=== PATIENT | male | born 1985 | race Caucasian/White ===

== ENCOUNTER 2016-07-05 20:37 | Inpatient (IN) ==
[2016-07-05] MEDS ORDERED: Ketorolac 30 MG/ML VIAL IVP ONE (20:50)
[2016-07-05] MEDS ORDERED: Vancomycin 1,500 MG in D5% in Water 250 ML IVPB ONE (20:50)
--- NOTE | 2016-07-05 20:52 | Emergency Department Note ---
Disposition Clinical Impression: Abscess of skin or subcutaneous tissue Disposition: Admitted As Inpatient Condition: Good General Adult HPI - General Chief complaint: ED Skin/Abscess/Foreign Body Stated complaint: skin rash/abscess Time Seen by Provider: 07/05/16 20:46 Source: patient Limitations: no limitations - History of Present Illness Pain Scale: 10 - Related Data Home Medications Medication Instructions Recorded Confirmed Ibuprofen [Motrin] 200 - 800 mg PO Q6HR PRN 07/06/16 07/06/16 Allergies Allergy/AdvReac Type Severity Reaction Status Date / Time Amoxicillin AdvReac Nausea Verified 07/05/16 20:40 Penicillins AdvReac Nausea Verified 07/05/16 20:39 Past Medical History - Past Medical History Medical history: Reports: no medical history Psychiatric history: Reports: no psych history - Social History Smoking Status: Current every day smoker Smokeless Tobacco Status: No Alcohol use: Reports: rarely Drug use: Reports: none Physical Exam - General Limitations: no limitations General appearance: alert, in no apparent distress Course Vital Signs Temperature 98.5 F 07/05/16 20:40 Pulse Rate 122 07/05/16 20:40 Respiratory Rate 18 07/05/16 20:40 Blood Pressure 121/72 07/05/16 20:40 O2 Sat by Pulse Oximetry 95 07/05/16 20:40 Temperature 98.0 F 07/08/16 08:05 Pulse Rate 72 07/08/16 08:05 Respiratory Rate 18 07/08/16 08:05 Blood Pressure 111/69 07/08/16 08:05 O2 Sat by Pulse Oximetry 98 07/08/16 08:05 Oxygen Delivery Oxygen Delivery Room Air Medical Decision Making - Lab Data Result diagrams: 07/07/16 09:11 07/07/16 09:11 Lab Results 07/05/16 07/05/16 07/05/16 Range/Units 21:28 21:28 21:28 WBC 15.0 H (4.3-11.1) K/mcL RBC 4.32 (4.19-5.50) M/mcL Hgb 13.4 (12.9-16.9) g/dL Hct 39.4 (37.5-50.1) % MCV 91.2 (83.0-100.0) fL MCH 31.0 (28.0-33.3) pg MCHC 34.0 (31.6-35.5) g/dL RDW 12.2 (11.5-14.5) % Plt Count 395 (140-400) K/mcL MPV 8.8 L (9.4-12.4) fL Immature Gran % 0.3 (0-4) % Seg Neutrophils % 72.5 % Lymphocytes % 17.0 % Monocytes % 9.1 % Eosinophils % 0.7 % Basophils % 0.4 % Neutrophils # 10.9 H (1.6-8.9) K/mcL Lymphocytes # 2.6 (0.6-4.6) K/mcL Monocytes # 1.4 H (0.0-1.3) K/mcL Eosinophils # 0.1 (0.0-0.6) K/mcL Basophils # 0.1 (0.0-0.2) K/mcL Immature Plt Fraction 1.6 (1.1-6.1) % ESR 28 H (0-10) mm/hr Sodium 137 (136-145) mEq/L Potassium 3.5 (3.5-4.5) mEq/L Chloride 100 (98-109) mEq/L Carbon Dioxide 26 (19-29) mEq/L BUN 17 (8-26) mg/dL Creatinine 1.36 H (0.72-1.25) mg/dL Est GFR ( Amer) > 60 (> 60) Est GFR (Non-Af Amer) > 60 (> 60) BUN/Creatinine Ratio 13 (6-26) Glucose 103 H (70-99) mg/dL Calculated Osmolality 286 (280-300) Calcium 9.7 (8.6-10.8) mg/dL Total Bilirubin 1.2 (0.2-1.2) mg/dL AST 19 (5-34) Units/L ALT 37 (0-55) Units/L Alkaline Phosphatase 67 (38-126) Units/L C-Reactive Protein 80 H (Less than 5) mg/L Serum Total Protein 8.3 (6.0-8.3) g/dL Albumin 4.4 (3.5-5.0) g/dL Globulin 3.9 H (2.4-3.5) g/dL Albumin/Globulin Ratio 1.1 (1.1-2.2) Attestation Statement - Attestation Attestation: I examined this patient and my medical decision-making was reviewed with the CONCRETE SPREADER/PA/Advanced Practice Nurse/Resident Physician. I agree with the documented findings, disposition and treatment plan as described except to the extent set forth below. [id number] time provided Patient presents with a cutaneous eruption with cellulitis and folliculitis to his right knee, left lateral thigh, right areola. He denies IV drug use. No systemic symptoms. He does not appear toxic. He does have noticeable swelling of the right suprapatellar region of his right knee. Septic arthritis possibility although I have a low suspicion for this
[2016-07-05 21:36] LABS: Basophils # 0.1 K/mcL (0.0-0.2); Basophils % 0.4 %; Eosinophils # 0.1 K/mcL (0.0-0.6); Eosinophils % 0.7 %; Hematocrit 39.4 % (37.5-50.1); Hemoglobin 13.4 g/dL (12.9-16.9); Immature Granulocytes % 0.3 % (0-4); Immature Platelets 1.6 % (1.1-6.1); Lymphocytes # 2.6 K/mcL (0.6-4.6); Mean Corpuscular Volume 91.2 fL (83.0-100.0); Mean Platelet Volume 8.8 fL (9.4-12.4); Monocytes # 1.4 K/mcL (0.0-1.3); Monocytes % 9.1 %; Neutrophils # 10.9 K/mcL (1.6-8.9); Platelet Count 395 K/mcL (140-400); Red Blood Count 4.32 M/mcL (4.19-5.50); Red Cell Distribution Width 12.2 % (11.5-14.5); Segmented Neutrophils % 72.5 %
--- NOTE | 2016-07-05 21:42 | Emergency Department Note ---
Disposition Clinical Impression: Abscess of skin or subcutaneous tissue Disposition: Admitted As Inpatient Condition: Good Time of Disposition: 22:21 General Adult HPI - General Chief complaint: ED Skin/Abscess/Foreign Body Stated complaint: skin rash/abscess Time Seen by Provider: 07/05/16 20:46 Source: patient Limitations: no limitations Nursing Notes Reviewed: Yes Vital Signs Reviewed: Yes - History of Present Illness HPI Narrative: No patient presented to the emergency department with multiple areas of draining infections. Complaint of right knee pain with an abscess there. Also right nipple discharge as well as cellulitis. Denies any fevers. His drug use. States this is been going on for about a week and a half. The right knee got worse and started becoming swollen 2 nights ago. Pain Scale: 10 - Related Data Allergies Allergy/AdvReac Type Severity Reaction Status Date / Time Amoxicillin AdvReac Nausea Verified 07/05/16 20:40 Penicillins AdvReac Nausea Verified 07/05/16 20:39 All systems ED: reviewed and negative except as stated. Constitutional: Denies: fever ENT ED: Denies: throat pain, congestion Cardiovascular: Denies: chest pain, palpitations, syncope Respiratory: Denies: cough, dyspnea, wheezes Gastrointestinal: Denies: abdominal pain, nausea, vomiting, diarrhea, hematemesis, melena, hematochezia Genitourinary: Denies: urgency, dysuria, frequency, hematuria Musculoskeletal: Reports: joint swelling (Right knee). Denies: back pain, neck pain Integumentary: Reports: lesions (Multiple areas of erythema and draining purulent discharge to right knee right nipple left thigh multiple areas on arms. ) Neurological: Denies: headache, weakness Past Medical History - Past Medical History Medical history: Reports: no medical history Psychiatric history: Reports: no psych history - Social History Smoking Status: Current every day smoker Smokeless Tobacco Status: No Alcohol use: Reports: rarely Drug use: Reports: none Physical Exam - General Limitations: no limitations General appearance: alert, in no apparent distress - Head Head exam: atraumatic, normocephalic, normal inspection - Eye Eye exam: Present: normal appearance, PERRL, EOMI. Absent: scleral icterus - ENT ENT exam: normal exam, normal oropharynx, mucous membranes moist - Neck Neck exam: Present: normal inspection, full ROM - Chest Chest inspection: Present: normal inspection, symmetric chest wall rise, tenderness (Right nipple. He has a area of erythema that is approximately 4 cm in diameter around his right nipple. There is drainage from the distal aspect of his right nipple. This appear cellulitic in nature. Cannot appreciate any abscesses under this.) - Respiratory Respiratory exam: Present: normal lung sounds bilaterally. Absent: respiratory distress - Cardiovascular Cardiovascular exam: Present: regular rate, normal rhythm, normal heart sounds - Abdominal Exam Abdominal exam: Present: soft, Non-Tender, normal bowel sounds, other (I do not appreciate any areas of erythema or cellulitis patient's abdomen.). Absent: tenderness, distention, guarding - Extremities Exam Extremities exam: Present: full ROM, tenderness (Right knee. Swelling and erythema to the prepatellar area of the right knee. It does not appear to be intra-articular. There is no tenderness on the joint line. Knee is warm. There is an area that is draining a purulent discharge to the anterior aspect of right patella.), normal capillary refill, joint swelling (Right knee), other (Area is a 2 cm in diameter of erythema with purulent drainage from the center. This is to the lateral aspect of anterior left thigh.). Absent: pedal edema - Back Exam Back exam: Present: normal inspection, full ROM, other (I do not appreciate any areas of abscess patient's back.). Absent: tenderness - Neurological Exam Neurological exam: Present: alert, oriented X3 - Psychiatric Psychiatric exam: Present: normal affect, normal mood - Skin Skin exam: Present: warm, dry, normal color Course Course Narrative: Male patient presenting to the emergency department with several areas of erythema and purulent drainage. Patient denies drug use. He denies skin popping. He reports a 1-1/2 week history of right knee pain that has had drainage. He states over the past 2 days the knee has been inflamed and the area has gotten larger. He did have a large amount of drainage last night. He states he also has an area that is abscess to the left lateral thigh. This is approximately 2 cm in diameter with purulent discharge and erythema around this as well. Also has a proximally 3 cm in diameter area around his right nipple that is erythematous and cellulitic in nature. He has multiple areas of abscess to his arms. None of these appeared to be amendable to drainage. Patient's right knee is erythematous swollen and warm. Does not appear to be intra-articular. There is no pain on the joint line. He has full range of motion of this extremity. We will begin patient on IV vancomycin. He does have an elevated white blood cell count. He is not febrile while he is here. He is otherwise well-appearing. We will get a CT with contrast the patient's right knee. His pain is being controlled with Toradol. We will admit patient to the hospital for IV antibiotic therapy. - Consultations Consultation #1: Dr. Pagan excepted patient's stable condition. He was made aware that we are scanning patient's knee but did not have the results back yet. Time: 21:57 Vital Signs Temperature 98.5 F 07/05/16 20:40 Pulse Rate 122 07/05/16 20:40 Respiratory Rate 18 07/05/16 20:40 Blood Pressure 121/72 07/05/16 20:40 O2 Sat by Pulse Oximetry 95 07/05/16 20:40 Temperature 98.5 F 07/05/16 20:40 Pulse Rate 122 07/05/16 20:40 Respiratory Rate 18 07/05/16 20:40 Blood Pressure 121/72 07/05/16 20:40 O2 Sat by Pulse Oximetry 95 07/05/16 20:40 Oxygen Delivery Oxygen Delivery Room Air Medical Decision Making - Medical Records Medical records reviewed: Yes I reviewed the patient's medical records. - Lab Data Lab results reviewed: Yes I reviewed the patient's lab results. Result diagrams: 07/05/16 21:28 07/05/16 21:28 Lab Results 07/05/16 07/05/16 07/05/16 Range/Units 21:28 21:28 21:28 WBC 15.0 H (4.3-11.1) K/mcL RBC 4.32 (4.19-5.50) M/mcL Hgb 13.4 (12.9-16.9) g/dL Hct 39.4 (37.5-50.1) % MCV 91.2 (83.0-100.0) fL MCH 31.0 (28.0-33.3) pg MCHC 34.0 (31.6-35.5) g/dL RDW 12.2 (11.5-14.5) % Plt Count 395 (140-400) K/mcL MPV 8.8 L (9.4-12.4) fL Immature Gran % 0.3 (0-4) % Seg Neutrophils % 72.5 % Lymphocytes % 17.0 % Monocytes % 9.1 % Eosinophils % 0.7 % Basophils % 0.4 % Neutrophils # 10.9 H (1.6-8.9) K/mcL Lymphocytes # 2.6 (0.6-4.6) K/mcL Monocytes # 1.4 H (0.0-1.3) K/mcL Eosinophils # 0.1 (0.0-0.6) K/mcL Basophils # 0.1 (0.0-0.2) K/mcL Immature Plt Fraction 1.6 (1.1-6.1) % ESR 28 H (0-10) mm/hr Sodium 137 (136-145) mEq/L Potassium 3.5 (3.5-4.5) mEq/L Chloride 100 (98-109) mEq/L Carbon Dioxide 26 (19-29) mEq/L BUN 17 (8-26) mg/dL Creatinine 1.36 H (0.72-1.25) mg/dL Est GFR ( Amer) > 60 (> 60) Est GFR (Non-Af Amer) > 60 (> 60) BUN/Creatinine Ratio 13 (6-26) Glucose 103 H (70-99) mg/dL Calculated Osmolality 286 (280-300) Calcium 9.7 (8.6-10.8) mg/dL Total Bilirubin 1.2 (0.2-1.2) mg/dL AST 19 (5-34) Units/L ALT 37 (0-55) Units/L Alkaline Phosphatase 67 (38-126) Units/L C-Reactive Protein 80 H (Less than 5) mg/L Serum Total Protein 8.3 (6.0-8.3) g/dL Albumin 4.4 (3.5-5.0) g/dL Globulin 3.9 H (2.4-3.5) g/dL Albumin/Globulin Ratio 1.1 (1.1-2.2)
[2016-07-05 21:53] LABS: Alanine Aminotransferase 37 Units/L (0-55); Albumin 4.4 g/dL (3.5-5.0); Albumin/Globulin Ratio 1.1 (1.1-2.2); Alkaline Phosphatase 67 Units/L (38-126); Aspartate Amino Transferase 19 Units/L (5-34); BUN/Creatinine Ratio 13 (6-26); Bilirubin,Total 1.2 mg/dL (0.2-1.2); Blood Urea Nitrogen 17 mg/dL (8-26); C-Reactive Protein 80 mg/L (Less than 5); Calcium 9.7 mg/dL (8.6-10.8); Carbon Dioxide 26 mEq/L (19-29); Chloride 100 mEq/L (98-109); Globulin 3.9 g/dL (2.4-3.5); Glucose 103 mg/dL (70-99); Osmolality,Calculated 286 (280-300); Potassium 3.5 mEq/L (3.5-4.5); Sodium 137 mEq/L (136-145); Total Protein 8.3 g/dL (6.0-8.3); eGFR For African Americans > 60 (> 60); eGFR For Non-African Americans > 60 (> 60)
[2016-07-06] MEDS ORDERED: Naloxone 0.4 MG/ML INJ IVP PRN (00:28)
--- NOTE | 2016-07-06 00:41 | Internal Med History&Physical ---
<Wes Ordoñez - Last Filed: 07/06/16 02:01> Date of Encounter: 07/06/16 Time of Encounter: 00:39 Assessment and Plan (1) Cellulitis Current visit: Yes Status: Acute With multiple sites. Concern for hematogenous spread of Staphylococcus organism. Blood cultures have been drawn, will obtain wound culture. IV antibiotics with vancomycin initiated. Patient does have a history of IV drug use but adamantly denies any drug use in the last years however there is a concern for hematogenous spread related to IV drug use. We will obtain urine drug screen, we will give no opiate pain medications, at least until urine drug screen is collected. Qualifiers: Site of cellulitis: unspecified site Qualified Code(s): L03.90 - Cellulitis , unspecified (2) Sepsis Current visit: Yes Status: Acute Patient meets sepsis criteria with leukocytosis, tachycardia with cellulitis as presumed source of infection. Blood cultures have been drawn, antibiotics have been initiated, initial lactate is 0.9. We will fluid hydrate and continue antibiotics Qualifiers: Sepsis type: sepsis due to unspecified organism Qualified Code(s): A41.9 - Sepsis, unspecified organism (3) DVT prophylaxis Current visit: Yes Status: Acute Heparin 5000 units subcutaneous twice a day Internal Medicine - H&P: HPI Chief complaint: Skin infection Admitted From: Emergency Dept Plans for Post Hospital Care: Home History of present illness: Mr. Cunningham is a 31 year old male who presents with multiple skin lesions. Patient states that approximately one week ago he developed small, flat, red lesions on his lower extremities. He states that some of these have progressed to larger areas of swelling and erythema and some of them have broken open and drained. He states he has never had anything like this before. He reports subjective fevers but has not measured them. Patient denies any known bug bites or tick bites, trauma or breaks in the skin, recent IV drug use. Patient states he did use IV drugs approximately 3 years ago but has not used since then. Denies chills, chest pain, shortness of breath, abdominal pain, nausea, vomiting, diarrhea, dysuria. Past Med Surg Social Fam HX - Past Medical History Medical history: no medical history Psychiatric history: no psych history - Past Surgical History Surgical History: non-contributory - Social History Smoking Status: Current every day smoker Packs per day: 3 or 4 cigarettes/day Smokeless Tobacco Status: No Alcohol use: occasionally Drug use: none - Family History Father Hx Family Cardiac Disorders: Yes (HTN, HLD) Hx Family Respiratory Disorders: Yes (COPD) Hx Family Cancer: No Hx Family GI Disorders: Yes (GERD) Hx Family Genitourinary Disorders: No Hx Family Endocrine Disorder: Yes (DM) Hx Family Musculoskeletal Disorders: No Hx Family Neuromuscular Disorders: No Hx Family Neurologic Disorders: No Hx Family HEENT Disorders: No Hx Family Autoimmune Disorders: No Hx Family Reproductive Disorders: No Hx Family Psychosocial Disorders: No Hx Family Medical Disorders: No Mother Hx Family Cardiac Disorders: Yes (HTN) Hx Family Respiratory Disorders: No Hx Family Cancer: Yes (Ovarian) Hx Family GI Disorders: Yes (GERD) Hx Family Genitourinary Disorders: No Hx Family Endocrine Disorder: Yes (DM) Hx Family Musculoskeletal Disorders: No Hx Family Neuromuscular Disorders: No Hx Family Neurologic Disorders: No Hx Family HEENT Disorders: No Hx Family Autoimmune Disorders: No Hx Family Reproductive Disorders: No Hx Family Psychosocial Disorders: No Hx Family Medical Disorders: No Internal Medicine - H&P: Meds Allergies Amoxicillin Adverse Reaction (Verified 07/05/16 20:40) Nausea Penicillins Adverse Reaction (Verified 07/05/16 20:39) Nausea All Systems PM: A 10-system review of systems was performed and is negative for pertinent findings except as documented above in the HPI. - Constitutional Constitutional: fever(s), no chills - EENT Eyes: no change in vision Nose, mouth and throat: no sinus pain, no sinus pressure, no sore throat - Breasts Breasts: pain, nipple discharge, skin changes - Cardiovascular Cardiovascular ROS IM: no chest pain, no dyspnea, no edema, no palpitations, no syncope - Respiratory Respiratory: no cough, no dyspnea - Gastrointestinal Gastrointestinal: no abdominal pain, no diarrhea, no nausea, no vomiting - Genitourinary Genitourinary ROS male: no dysuria, no hematuria - Musculoskeletal Musculoskeletal ROS IM: no arthralgias, no numbness, no tingling - Integumentary Integumentary IM: erythema, new lesions, rash, skin ulcer, sores - Neurological Neurological ROS: no dizziness, no paresthesias - Psychiatric Psychiatric: no anxiety, no depression - Hematologic/Lymphatic Hematologic/Lymphatic: no easy bleeding, no easy bruising, no lymphadenopathy - Allergic/Immunologic Allergic/Immunologic: no throat swelling, no itchy eyes - Constitutional Vitals: Temp Pulse Resp BP Pulse Ox 97.9 F 100 16 116/65 95 07/05/16 23:11 07/05/16 23:11 07/05/16 23:11 07/05/16 23:11 07/05/16 23:11 General appearance: Present: A&O X 3, no acute distress - Head Head exam: Present: atraumatic, normal inspection, normocephalic - Eye Eye exam: Present: EOMI, PERRL - ENT ENT exam: Present: mucous membranes moist - Neck Neck exam general surgery: Present: full ROM. Absent: tenderness, nuchal rigidity - Respiratory Respiratory exam: Present: CTAB. Absent: rales, rhonchi, wheezes - Cardiovascular Cardiovascular exam: Present: tachycardia. Absent: gallop, irregular rhythm, rubs, systolic murmur - GI/Abdominal GI/Abdominal exam: Present: normal bowel sounds, soft. Absent: distended, tenderness - Extremities Exam Extremities exam: Present: warm. Absent: pedal edema, tenderness - Neurological Exam Neurological exam: Present: alert, CN II-XII intact, oriented X3, no focal deficits - Skin Additional comments: Patient has multiple lesions on his lower extremity ranging from small erythematous macules measuring less than 1 cm in diameter up to approximately 4 lesions located on the right knee right upper lateral thigh and left thigh which show central areas of ulceration with surrounding erythema and warmth. There is a scant amount of pustular drainage. Patient also has erythema surrounding his right nipple with induration but no fluctuation or discernible abscess or drainage. He also has several small erythematous macules on his upper extremity is bilaterally. Internal Med - H&P Results - Labs CBC & Chem 7: 07/05/16 21:28 07/05/16 21:28 <Osmel Nguyen - Last Filed: 07/06/16 03:18> Date of Encounter: 07/06/16 Internal Medicine - H&P: HPI History of present illness: Mr. Cunningham is a 31 year old male All Systems PM: A 10-system review of systems was performed and is negative for pertinent findings except as documented above in the HPI. - Constitutional Vitals: Temp Pulse Resp BP Pulse Ox 97.9 F 100 16 116/65 95 07/05/16 23:11 07/05/16 23:11 07/05/16 23:11 07/05/16 23:11 07/05/16 23:11 Internal Med - H&P Results - Labs CBC & Chem 7: 07/05/16 21:28 07/05/16 21:28 - Attending Attestation I examined this patient and my medical decision-making was reviewed with the Resident Physician, Dr Ordoñez. I agree with the documented findings, disposition and treatment plan as described except to the extent set forth below. Patient is in no acute distress. Heart exam reveals regular S1 and S2 with no murmurs. Lungs are clear bilaterally. Skin has multiple areas of erythema with central necrosis the most prominent is on the right knee. I have I and D- ed this area and obtained a wound culture. Plan: We will give 1 L bolus. Continue vancomycin with dosing by levels. IV Toradol for pain. Follow-up blood cultures and wound culture. He is at high risk for morbidity mortality and complications due to IV vancomycin which requires frequent blood level monitoring for toxicity and therapeutic effect.
[2016-07-06] MEDS ORDERED: Vancomycin 1,000 MG in D5% in Water 250 ML IVPB SCH (01:00)
[2016-07-06] MEDS: Ketorolac 30 MG/ML VIAL IVP PRN ×4 (01:35→21:05)
[2016-07-06] MEDS ORDERED: 0.9 % Sodium Chloride 1,000 ML IVC ONE (03:11)
[2016-07-06 04:27] LABS: BUN/Creatinine Ratio 16 (6-26); Basophils # 0.1 K/mcL (0.0-0.2); Basophils % 0.4 %; Blood Urea Nitrogen 19 mg/dL (8-26); Calcium 9.2 mg/dL (8.6-10.8); Carbon Dioxide 25 mEq/L (19-29); Chloride 101 mEq/L (98-109); Eosinophils # 0.2 K/mcL (0.0-0.6); Eosinophils % 1.8 %; Glucose 104 mg/dL (70-99); Hematocrit 37.1 % (37.5-50.1); Hemoglobin 12.3 g/dL (12.9-16.9); Immature Granulocytes % 0.5 % (0-4); Lymphocytes # 2.7 K/mcL (0.6-4.6); Lymphocytes % 19.8 %; Magnesium 2.1 mg/dL (1.6-2.6); Mean Corpuscular HGB Conc 33.2 g/dL (31.6-35.5); Mean Corpuscular Hemoglobin 30.8 pg (28.0-33.3); Mean Corpuscular Volume 92.8 fL (83.0-100.0); Mean Platelet Volume 9.2 fL (9.4-12.4); Monocytes # 1.1 K/mcL (0.0-1.3); Monocytes % 8.1 %; Neutrophils # 9.5 K/mcL (1.6-8.9); Osmolality,Calculated 287 (280-300); Platelet Count 316 K/mcL (140-400); Potassium 3.4 mEq/L (3.5-4.5); Red Cell Distribution Width 12.4 % (11.5-14.5); Segmented Neutrophils % 69.4 %; Sodium 137 mEq/L (136-145); eGFR For African Americans > 60 (> 60); eGFR For Non-African Americans > 60 (> 60)
[2016-07-06] MEDS: Vancomycin 1,250 MG in D5% in Water 250 ML IVPB SCH ×3 (06:17→22:03)
[2016-07-06] MEDS: *HR* Heparin 5,000 UNIT/ML VIAL SQ SCH ×2 (06:17→17:19)
[2016-07-06 09:21] LABS: Amphetamine Screen,Urine Negative ng/mL (Cutoff=1000); Barbiturate Screen,Urine Negative ng/mL (Cutoff=200); Benzodiazepines Screen,Urine Negative ng/mL (Cutoff=200); Cannabinoid Screen,Urine Negative ng/mL (Cutoff = 50); Cocaine Screen,Urine Positive ng/mL (Cutoff= 300); Opiate Screen,Urine Positive ng/mL (Cutoff=300); Phencyclidine Screen,Urine Negative ng/mL (Cutoff=25)
[2016-07-06] MEDS ORDERED: Potassium Chloride Elixir 20 MEQ/15 ML UDC PO ONE (14:35)
[2016-07-07] MEDS: *HR* Heparin 5,000 UNIT/ML VIAL SQ SCH ×2 (05:16→17:00)
[2016-07-07] MEDS: Vancomycin 1,250 MG in D5% in Water 250 ML IVPB SCH ×3 (05:16→22:02)
[2016-07-07 09:11] LABS: BUN/Creatinine Ratio 12 (6-26); Blood Urea Nitrogen 11 mg/dL (8-26); Calcium 8.8 mg/dL (8.6-10.8); Carbon Dioxide 26 mEq/L (19-29); Chloride 106 mEq/L (98-109); Glucose 101 mg/dL (70-99); Magnesium 1.7 mg/dL (1.6-2.6); Osmolality,Calculated 288 (280-300); Sodium 139 mEq/L (136-145); eGFR For African Americans > 60 (> 60); eGFR For Non-African Americans > 60 (> 60)
[2016-07-07 09:33] LABS: Basophils % 0.3 %; Eosinophils # 0.1 K/mcL (0.0-0.6); Hematocrit 32.8 % (37.5-50.1); Hemoglobin 10.9 g/dL (12.9-16.9); Immature Granulocytes % 0.6 % (0-4); Immature Platelets 1.6 % (1.1-6.1); Lymphocytes % 17.5 %; Mean Corpuscular HGB Conc 33.2 g/dL (31.6-35.5); Mean Corpuscular Hemoglobin 31.3 pg (28.0-33.3); Mean Corpuscular Volume 94.3 fL (83.0-100.0); Mean Platelet Volume 9.1 fL (9.4-12.4); Monocytes # 1.1 K/mcL (0.0-1.3); Monocytes % 9.5 %; Neutrophils # 8.2 K/mcL (1.6-8.9); Platelet Count 287 K/mcL (140-400); Red Blood Count 3.48 M/mcL (4.19-5.50); Red Cell Distribution Width 12.4 % (11.5-14.5); Segmented Neutrophils % 71.1 %
--- NOTE | 2016-07-07 12:20 | Internal Med Progress Note ---
Date of Encounter: 07/07/16 Time of Encounter: 12:18 - Assessment and plan (1) Abscess of skin or subcutaneous tissue Current Visit: Yes Status: Acute Assessment and plan: Patient is noted to have multiple small pustules and abscesses over bilateral lower extremities and chest wall, the biggest one over the right anterior knee. Underwent bedside incision and drainage at admission, preliminary wound culture grows gram-positive cocci, possible MRSA. Improving overall clinical condition. Continue IV vancomycin for now and follow up final cultures. Patient also had spontaneous rupture of right chest wall abscess, Gram stain is negative so far as he has already been started on IV antibiotics. Qualifiers: Site of cutaneous abscess: extremity Site of cutaneous abscess of extremity : lower extremity Laterality: right Qualified Code(s): L02.415 - Cutaneous abscess of right lower limb (2) Cellulitis Current Visit: Yes Status: Acute Assessment and plan: Cellulitis with associated abscess on right anterior knee and right chest wall. Questionable IV drug use versus bug bites. Continue IV vancomycin and follow up final wound cultures. Qualifiers: Site of cellulitis: extremity Site of cellulitis of extremity: lower extremity Laterality: right Qualified Code(s): L03.115 - Cellulitis of right lower limb (3) Sepsis Current Visit: Yes Status: Resolved Assessment and plan: Improved leukocytosis and tachycardia. Continue IV antibiotics. Qualifiers: Sepsis type: sepsis due to unspecified organism Qualified Code(s): A41.9 - Sepsis, unspecified organism (4) Positive urine drug screen Current Visit: Yes Status: Acute Assessment and plan: Urine drug screen positive for cocaine and opiates and patient reports using cocaine during the weekend libertarian and using his mother's Vicodin for the pain related to cellulitis. flight attendant inflight services consult. - Subjective Interval history: Reports improvement in pain and size of his skin lesions, specially over right knee and right chest wall; no fever/chills, nausea/emesis, diarrhea, dyspnea; - Constitutional Vitals: Temp Pulse Resp BP Pulse Ox 99.6 F 75 12 106/63 95 07/07/16 10:57 07/07/16 10:57 07/07/16 10:57 07/07/16 10:57 07/07/16 10:57 General appearance: Present: A&O X 3, answers questions appropriately - Respiratory Respiratory exam: Present: CTAB. Absent: accessory muscle use, rales, rhonchi, wheezes - Cardiovascular Cardiovascular exam: Present: RRR, +S1, +S2. Absent: diastolic murmur, gallop, rubs, systolic murmur - Skin Skin exam: Present: dry, intact Additional comments: improved erythema and swelling and induration over right knee; small ulcer with yellowish exudate; right chest wall- erythema, induration beneath the nipple, extending to involve the mammary area, dry lesion, improving tenderness Internal Medicine: Result - Labs CBC & Chem 7: 07/07/16 09:11 07/07/16 09:11 Labs: Short CBC 07/07/16 Range/Units 09:11 WBC 11.5 H (4.3-11.1) K/mcL Hgb 10.9 L (12.9-16.9) g/dL Hct 32.8 L (37.5-50.1) % Plt Count 287 (140-400) K/mcL Neutrophils # 8.2 (1.6-8.9) K/mcL BMP 07/07/16 09:11 Sodium 139 Potassium 4.0 Chloride 106 Carbon Dioxide 26 BUN 11 Creatinine 0.91 Glucose 101 H Calcium 8.8 Consult Discharge Plan - Plan Referrals: NO,PCP [Primary Care Provider] -
[2016-07-07] MEDS: Ketorolac 30 MG/ML VIAL IVP PRN (13:58)
[2016-07-08] MEDS: Ketorolac 30 MG/ML VIAL IVP PRN ×3 (01:02→21:29)
[2016-07-08] MEDS: *HR* Heparin 5,000 UNIT/ML VIAL SQ SCH ×2 (05:50→17:48)
[2016-07-08] MEDS: Vancomycin 1,250 MG in D5% in Water 250 ML IVPB SCH ×2 (05:50→13:48)
--- NOTE | 2016-07-08 14:45 | Internal Med Progress Note ---
Date of Encounter: 07/08/16 Time of Encounter: 14:42 - Assessment and plan (1) Abscess of skin or subcutaneous tissue Current Visit: Yes Status: Acute Assessment and plan: Patient is noted to have multiple small pustules and abscesses over bilateral lower extremities and chest wall, the biggest one over the right anterior knee. Improving lesions and cellulitis overall. Wound cultures from right chest wall and right knee grow MRSA, sensitive to clindamycin. Will change antibiotics to IV clindamycin and continue to monitor. Anticipate discharge in a.m. Qualifiers: Site of cutaneous abscess: extremity Site of cutaneous abscess of extremity : lower extremity Laterality: right Qualified Code(s): L02.415 - Cutaneous abscess of right lower limb (2) Cellulitis Current Visit: Yes Status: Acute Assessment and plan: Cellulitis with associated abscess on right anterior knee and right chest wall. Questionable IV drug use versus bug bites. Change antibiotics to IV clindamycin as above for wound cultures growing MRSA. 2 sets of blood cultures remain negative. Qualifiers: Site of cellulitis: extremity Site of cellulitis of extremity: lower extremity Laterality: right Qualified Code(s): L03.115 - Cellulitis of right lower limb (3) Sepsis Current Visit: Yes Status: Resolved Qualifiers: Sepsis type: sepsis due to unspecified organism Qualified Code(s): A41.9 - Sepsis, unspecified organism (4) Positive urine drug screen Current Visit: Yes Status: Acute - Subjective Interval history: Improving skin lesions; no fever, nausea, emesis, diarrhea; - Constitutional Vitals: Temp Pulse Resp BP Pulse Ox 97.8 F 87 16 109/67 98 07/08/16 11:23 07/08/16 11:23 07/08/16 11:23 07/08/16 11:23 07/08/16 11:23 General appearance: Present: A&O X 3, answers questions appropriately - Respiratory Respiratory exam: Present: CTAB. Absent: accessory muscle use, rales, rhonchi, wheezes - Cardiovascular Cardiovascular exam: Present: RRR, +S1, +S2. Absent: diastolic murmur, gallop, rubs, systolic murmur - Skin Skin exam: Present: dry, intact Additional comments: improving surrounding erythema and induration around lesions over right knee and right chest wall; dry ulcers with underlying induration, nontender Internal Medicine: Result - Labs CBC & Chem 7: 07/07/16 09:11 07/07/16 09:11 Consult Discharge Plan - Plan Referrals: NO,PCP [Primary Care Provider] -
[2016-07-08] MEDS: Clindamycin 600 MG/50 ML 600 MG/50 ML IV.SOLN IVPB SCH (17:04)
[2016-07-09] MEDS: Clindamycin 600 MG/50 ML 600 MG/50 ML IV.SOLN IVPB SCH ×2 (00:09→07:55)
[2016-07-09] MEDS: *HR* Heparin 5,000 UNIT/ML VIAL SQ SCH (06:40)
[2016-07-09] MEDS: Ketorolac 30 MG/ML VIAL IVP PRN ×2 (07:54→14:05)
--- NOTE | 2016-07-09 11:39 | Internal Med Progress Note ---
Date of Encounter: 07/09/16 Time of Encounter: 11:36 - Assessment and plan (1) Abscess of skin or subcutaneous tissue Current Visit: Yes Status: Acute Qualifiers: Site of cutaneous abscess: extremity Site of cutaneous abscess of extremity : lower extremity Laterality: right Qualified Code(s): L02.415 - Cutaneous abscess of right lower limb (2) Cellulitis Current Visit: Yes Status: Acute Qualifiers: Site of cellulitis: extremity Site of cellulitis of extremity: lower extremity Laterality: right Qualified Code(s): L03.115 - Cellulitis of right lower limb (3) Sepsis Current Visit: Yes Status: Resolved Qualifiers: Sepsis type: sepsis due to unspecified organism Qualified Code(s): A41.9 - Sepsis, unspecified organism (4) Positive urine drug screen Current Visit: Yes Status: Acute - Subjective Interval history: Reports that his right chest wall wound got burst open yesterday and he expressed a lot of pus by himself last night; no fever/chills, nausea/vomiting, abdominal pain, diarrhea; - Constitutional Vitals: Temp Pulse Resp BP Pulse Ox 97.5 F L 79 16 111/70 95 07/09/16 07:21 07/09/16 07:21 07/09/16 07:21 07/09/16 07:21 07/09/16 08:06 General appearance: Present: A&O X 3, answers questions appropriately - Respiratory Respiratory exam: Present: CTAB. Absent: accessory muscle use, rales, rhonchi, wheezes - Cardiovascular Cardiovascular exam: Present: RRR, +S1, +S2. Absent: diastolic murmur, gallop, rubs, systolic murmur - Skin Skin exam: Present: dry, intact Additional comments: right chest wall with small deep wound with packing intact; surrounding erythema and induration; nontender; Internal Medicine: Result - Labs CBC & Chem 7: 07/07/16 09:11 07/07/16 09:11 Consult Discharge Plan - Plan Referrals: NO,PCP [Primary Care Provider] -
[2016-07-09 11:52] VITALS: BP 103/63
--- NOTE | 2016-07-09 14:00 | Event Note ---
Date of Encounter: 07/09/16 Time of Encounter: 13:30 Mr. Cunningham is a 31 -year-old male that we were asked to see for right sided chest wall cellulitis and abscess. The patient states that the area opened up spontaneously last evening and he peeled back a piece of skin and drained what he describes as a significant amount of purulent material. The area feels much better today. I have seen and examined him. There is no residual fluctuance noted. The abscess cavity is decompressed. There is minimal redness and induration surrounding this area. The patient's cultures did come back for MRSA. May transition to oral antibiotics per the hospitalist's discretion. Continue with daily wound care as ordered. No further surgical intervention is indicated at this time. Thank you for allowing us to participate in the care of this patient. Please call with any further questions or concerns.
--- NOTE | 2016-07-09 14:28 | Discharge Summary ---
Date of Encounter: 07/09/16 Time of Encounter: 11:30 - Discharge Diagnosis (1) Abscess of skin or subcutaneous tissue Priority: Primary Status: Acute Qualifiers: Site of cutaneous abscess: extremity Site of cutaneous abscess of extremity : lower extremity Laterality: right Qualified Code(s): L02.415 - Cutaneous abscess of right lower limb (2) Cellulitis Priority: Primary Status: Acute Qualifiers: Site of cellulitis: extremity Site of cellulitis of extremity: lower extremity Laterality: right Qualified Code(s): L03.115 - Cellulitis of right lower limb (3) Sepsis Priority: Primary Status: Resolved Qualifiers: Sepsis type: sepsis due to unspecified organism Qualified Code(s): A41.9 - Sepsis, unspecified organism (4) Positive urine drug screen Priority: Secondary Status: Acute - Discharge Medications Prescriptions: Clindamycin [Cleocin] 300 mg PO Q6HR 7 Days Gauze Bandage [Gauze] 1 each TP DAILY 10 Days Ibuprofen 400 mg PO Q6H PRN #30 tablet PRN Reason: Pain Iodoform [Curity Iodoform] 1 each TP DAILY 10 Days Home Medications: Clindamycin [Cleocin] 300 mg PO Q6HR 7 Days 07/09/16 [Rx] Gauze Bandage [Gauze] 1 each TP DAILY 10 Days 07/09/16 [Rx] Ibuprofen 400 mg PO Q6H PRN #30 tablet 07/09/16 [Rx] Iodoform [Curity Iodoform] 1 each TP DAILY 10 Days 07/09/16 [Rx] Allergies/Adverse Reactions: Allergies Amoxicillin Adverse Reaction (Verified 07/05/16 20:40) Nausea Penicillins Adverse Reaction (Verified 07/05/16 20:39) Nausea Date of admission: 07/08/16 14:34 Primary care physician: PCP NO Consults: 07/08/16 20:18 Consult to Wound Care [CONS] Routine Reason for Consult: Multiple abcess wounds, MRSA + active thick, yellow drainage. Call Completed: No 07/09/16 11:38 Consult to Surgery [CONS] Routine Consulting Provider: Bronwyn Br[facility] Reason for Consult: Right chest wall abscess Call Completed: Yes Discharging clinician: Sylvia Julien Anticipated date of discharge: 07/09/16 - Patient Status Disposition: Home, Self-Care Condition: Good Functional capacity at discharge: independent ambulation Overall status at discharge: patient is progressing back to baseline - Discharge Instructions Instructions: Cellulitis (DC), Sepsis (DC) Follow Up With: NO,PCP [Primary Care Provider] - (Please call [phone] (FIND) to find a family physician) Additional Instructions: F/up with wound care/PCP in 1 week - Diet and Activity Activity: resume usual activities as tolerated Diet: advance to your usual diet Hospital course: Mr. Cunningham is a 31 year old male with history of remote IV drug abuse, who was admitted with multiple sites of cellulitis and small abscesses on his extremities. He was noted to have sepsis with leukocytosis, tachycardia and was started on broad-spectrum IV antibiotics-vancomycin and Zosyn. Patient was noted to have erythema, swelling and tenderness, most noticeable on the right anterior knee and right chest wall. Wound on right knee was incised and drained at admission with wound culture growing MRSA. This wound has healed up well during this hospitalization. However, patient had spontaneous rupture of the wound on right chest wall with drainage of significant amount of purulent material and this wound culture has also grown MRSA. Surgery was consulted for possible need for formal incision and drainage of this chest wound, however no further intervention was recommended. business services tech was consulted and outpatient wound care is being arranged for this patient with no primary care provider. His leukocytosis and tachycardia improved and he remains hemodynamically stable. Local wound care was taught to his significant other and he is medically stable for discharge with oral antibiotics and outpatient follow-up. - Time Spent with Patient Total time spent providing and/or coordinating discharge services: Greater than 30 minutes (45 min) - Constitutional Vitals: Temp Pulse Resp BP Pulse Ox 97.7 F 66 16 103/63 94 07/09/16 11:51 07/09/16 11:51 07/09/16 11:51 07/09/16 11:51 07/09/16 11:51 General appearance: Present: A&O X 3, answers questions appropriately - Respiratory Respiratory exam: Present: CTAB. Absent: accessory muscle use, rales, rhonchi, wheezes - Cardiovascular Cardiovascular exam: Present: RRR, +S1, +S2. Absent: diastolic murmur, gallop, rubs, systolic murmur
[2016-07-09] MEDS ORDERED: Aminoglycoside Consult 1 EACH MC ONE (15:55)
== END 2016-07-09 15:56 | disposition home or self-care (01) | DRG 720 ==
LOC: EMEROO 20:37 → 3BNU 20:37 → SUATTDRO 22:00 → 3BNU 23:00
PROVIDERS: ADMIT Internal Medicine Sleep Medicine; ATTEND Internal Medicine

== ENCOUNTER 2019-03-13 23:01 | Observation (INO) ==
[2019-03-13] MEDS ORDERED: 0.9 % Sodium Chloride 1,000 ML IVC ONE (23:26)
[2019-03-13] MEDS ORDERED: Isovue-370 500 ML BOTTLE IVP ONE (23:37)
[2019-03-13] MEDS ORDERED: *HR* LORazepam 2 MG/ML VIAL IVP ONE (23:42)
[2019-03-13 23:46] LABS: Amphetamine Screen,Urine Positive ng/mL (Cutoff=1000); Barbiturate Screen,Urine Negative ng/mL (Cutoff=200); Benzodiazepines Screen,Urine Negative ng/mL (Cutoff=200); Cannabinoid Screen,Urine Negative ng/mL (Cutoff = 50); Cocaine Screen,Urine Negative ng/mL (Cutoff= 300); Opiate Screen,Urine Negative ng/mL (Cutoff=300); Phencyclidine Screen,Urine Negative ng/mL (Cutoff=25)
[2019-03-13 23:47] LABS: Bilirubin,Urine Small (Negative); Blood,Urine Negative (Negative); Color,Urine Dark Yellow (Yellow); Glucose,Urine (UA) Normal (Normal); Ketones,Urine Trace mg/dL (Negative); Leukocyte Esterase,Urine Negative (Negative); Nitrite,Urine Negative (Negative); PH,Urine 5.5 pH Units (5.0-8.0); Protein,Urine Trace mg/dL (Neg-Trace); Specific Gravity,Urine > 1.030 (1.010-1.025); Urobilinogen,Urine Normal (Normal)
[2019-03-13 23:49] LABS: Clarity,Urine Slightly Hazy (Clear)
[2019-03-14 00:02] LABS: VBG HCO3 27 mEq/L (21-27); VBG PCO2 47 mmHg (41-51); VBG PH 7.37 pH Units (7.32-7.42); VBG PO2 41 mmHg (25-50)
[2019-03-14 00:19] LABS: Basophils # 0.1 K/mcL (0.0-0.2); Basophils % 0.4 %; Eosinophils # 0.1 K/mcL (0.0-0.6); Eosinophils % 0.4 %; Hematocrit 48.4 % (37.5-50.1); Lymphocytes # 2.1 K/mcL (0.6-4.6); Lymphocytes % 12.5 %; Mean Corpuscular HGB Conc 33.1 g/dL (31.6-35.5); Mean Corpuscular Volume 90.8 fL (83.0-100.0); Neutrophils # 13.2 K/mcL (1.6-8.9); Platelet Count 519 K/mcL (140-400); Red Blood Count 5.33 M/mcL (4.19-5.50); Segmented Neutrophils % 79.7 %; White Blood Count 16.6 K/mcL (4.3-11.1)
[2019-03-14 00:20] LABS: Acetaminophen < 10 mcg/mL (10-20); Salicylate < 2.5 mg/dL (15.0-30.0)
[2019-03-14] MEDS ORDERED: *HR* LORazepam 2 MG/ML VIAL IVP ONE (00:24)
[2019-03-14] MEDS ORDERED: Aztreonam 2,000 MG in Water for inj. (sterile) 20 ML IVP ONE (00:47)
[2019-03-14 01:04] LABS: Alanine Aminotransferase 41 Units/L (7-52); Albumin 4.9 g/dL (3.5-5.7); Albumin/Globulin Ratio 1.5 (1.1-2.2); Alkaline Phosphatase 73 Units/L (34-104); Aspartate Amino Transferase 26 Units/L (13-39); BUN/Creatinine Ratio 14 (6-26); Bilirubin,Direct 0.2 mg/dL (0.0-0.2); Bilirubin,Indirect 0.9 mg/dL (0.0-1.0); Bilirubin,Total 1.1 mg/dL (0.3-1.0); Blood Urea Nitrogen 19 mg/dL (6-20); Calcium 10.3 mg/dL (8.6-10.3); Carbon Dioxide 23 mEq/L (23-29); Chloride 104 mEq/L (98-107); Creatine Kinase 86 Units/L (30-223); Ethanol < 10 mg/dL (Less than 10); Globulin 3.3 g/dL (2.4-3.5); Glucose 98 mg/dL (70-105); Osmolality,Calculated 294 (280-300); Potassium 4.3 mEq/L (3.5-5.1); Sodium 141 mEq/L (136-145); Total Protein 8.2 g/dL (6.4-8.9); Troponin I < 0.03 ng/mL (< 0.04); eGFR For African Americans > 60 (> 60); eGFR For Non-African Americans > 60 (> 60)
[2019-03-14] MEDS ORDERED: Piperacillin/Tazobactam 3.375 GM in 0.9 % Sodium Chloride Mini Bag 100 ML IVPB ONE (01:08)
[2019-03-14] MEDS ORDERED: Isovue-370 500 ML BOTTLE IVP ONE (02:49)
[2019-03-14] MEDS ORDERED: Naloxone 0.4 MG/ML INJ IVP PRN (03:16)
[2019-03-14] MEDS ORDERED: 0.9 % Sodium Chloride 1,000 ML IVC SCH (03:30)
[2019-03-14 05:09] LABS: Basophils # 0.1 K/mcL (0.0-0.2); Basophils % 0.3 %; Eosinophils # 0.1 K/mcL (0.0-0.6); Eosinophils % 0.5 %; Hematocrit 43.3 % (37.5-50.1); Hemoglobin 14.6 g/dL (12.9-16.9); Immature Granulocytes % 0.5 % (0-4); Lymphocytes # 3.9 K/mcL (0.6-4.6); Lymphocytes % 22.8 %; Mean Corpuscular HGB Conc 33.7 g/dL (31.6-35.5); Mean Corpuscular Hemoglobin 29.6 pg (28.0-33.3); Mean Corpuscular Volume 87.7 fL (83.0-100.0); Mean Platelet Volume 8.8 fL (9.4-12.4); Monocytes # 0.7 K/mcL (0.0-1.3); Monocytes % 4.1 %; Neutrophils # 12.2 K/mcL (1.6-8.9); Platelet Count 451 K/mcL (140-400); Red Blood Count 4.94 M/mcL (4.19-5.50); Segmented Neutrophils % 71.8 %; White Blood Count 17.1 K/mcL (4.3-11.1)
[2019-03-14 05:27] LABS: BUN/Creatinine Ratio 15 (6-26); Blood Urea Nitrogen 17 mg/dL (6-20); Calcium 9.1 mg/dL (8.6-10.3); Carbon Dioxide 22 mEq/L (23-29); Chloride 109 mEq/L (98-107); Glucose 143 mg/dL (70-105); Osmolality,Calculated 288 (280-300); Potassium 3.9 mEq/L (3.5-5.1); Sodium 137 mEq/L (136-145); eGFR For African Americans > 60 (> 60); eGFR For Non-African Americans > 60 (> 60)
[2019-03-14] MEDS ORDERED: Nicotine 21 MG PATCH.TD24 TD SCH ×2 (05:54→14:33)
[2019-03-14] MEDS ORDERED: Piperacillin/Tazobactam 3.375 GM in 0.9 % Sodium Chloride Mini Bag 100 ML IVPB SCH (08:00)
[2019-03-14] MEDS ORDERED: *HR* LORazepam 2 MG/ML VIAL IVP STA (15:00)
[2019-03-14 15:17] VITALS: BP 126/74
[2019-03-14] MEDS ORDERED: Aminoglycoside Consult 1 EACH MC ONE (15:20)
[2019-03-15] MEDS ORDERED: Nicotine 21 MG PATCH.TD24 TD SCH (09:00)
== END 2019-03-14 15:21 | disposition left against medical advice (07) ==
LOC: 2ANU 23:01 → EMEROOARM 23:01 → SUATTDRO 03-14 03:24 → 2ANU 03-14 04:03
PROVIDERS: ADMIT Internal Medicine; ATTEND Internal Medicine